=== PATIENT | female | born 2000 | race Caucasian/White ===

== ENCOUNTER 2020-08-08 21:40 | Emergency (ER) | payer MEDICAID, SELFPAY ==
[2020-08-08 21:46] VITALS: BP 136/83; PULSE 88; RESP 16; TEMP 36.3; O2SAT 96
[2020-08-08 21:51] VITALS: RESP 18
--- NOTE | 2020-08-08 22:00 | RT.EKG_ITS ---
APPROVED REPORT Exam: Resting ECG Reason for Exam: chest pain Patient Location: E HR:66 bpm ECG Measurements Heart Rate 66 AXIS SC 168 P 40 QRSd 112 QRS 62 QT 396 T 29 QTc 416 Conclusion Sinus rhythm...normal P axis, V-rate 60- 99 Normal Electrocardiogram
[2020-08-08 22:27] LABS: Abs Immature Grans 0.02 10^3/uL (0.0-0.06); Absolute Lymphocyte Count 3.43 10^3/uL (1.2-3.4); Absolute Monocyte Count 0.74 10^3/uL (0.1-0.8); Basophils % 0.5; Eosinophils % 1.5; HCT 41.9 % (36.0-46.0); HGB 14.3 g/dL (11.2-15.7); Immature Grans % 0.2; Lymphocytes % 31.1; MCH 28.5 pg (27.0-33.0); MCHC 34.1 % (32.0-36.0); MCV 83.5 fL (80-95); MPV 9.2 fL (8.0-11.0); Monocytes % 6.7; Nucleated RBC 0 %; Platelet Count 390 10^3/uL (130-400); RBC 5.02 10^6/uL (3.93-5.22); RDW 11.6 % (11.7-14.6); RDW-SD 35.3 fL; WBC 11.02 10^3/uL (4.4-10.8)
[2020-08-08 22:29] LABS: Absolute Basophil Count 0.06 10^3/uL (0.0-0.2); Absolute Eosinophil Count 0.17 10^3/uL (0.0-0.7); Absolute Neutrophil Count 6.61 10^3/uL (1.2-6.7)
[2020-08-08 22:41] LABS: PTT Activated 23.6 sec (21.0-27.5); Prothrombin Time 10.5 sec (9.3-11.0)
[2020-08-08 22:42] LABS: ALT 19 U/L (14-59); AST 12 U/L (15-37); Albumin 3.9 g/dL (3.4-5.0); Alkaline Phosphatase 93 U/L (46-116); Anion Gap 10.3 mmol/L (3-11); BUN 8 mg/dL (7-18); Bilirubin, Total 0.4 mg/dL (0.2-1.0); CO2 26.7 mmol/L (21.0-32.0); CREATININE 0.9 mg/dL (0.55-1.02); Chloride 104 mmol/L (98-107); Glucose 86 mg/dL (74-106); Magnesium 1.8 mg/dL (1.8-2.4); Potassium 3.3 mmol/L (3.5-5.1); Sodium 141 mmol/L (136-145); Total Protein 7.7 g/dL (6.4-8.2)
[2020-08-08 22:43] LABS: Troponin I < 0.05 ng/mL (<0.06)
--- NOTE | 2020-08-08 22:49 | DI.RAD_ITS ---
Exam(s) XR CHEST 2V PA LATERAL EXAM: XR CHEST 2V PA LATERAL CLINICAL HISTORY: sob, cough, chest pain TECHNIQUE: 2D digital imaging was performed. COMPARISON: No exams were available for comparison FINDINGS: The heart is not enlarged. The lungs are clear and well expanded. No pleural effusion seen. Mediastin al contours appear intact. IMPRESSION: Normal chest. RADIATION DOSE DELIVERED: Total DLP
[2020-08-08 22:56] LABS: D-Dimer 591 ng/mlFEU (<500)
--- NOTE | 2020-08-08 22:56 | ED.GENADUL_ITS ---
Discharge Plan Disposition Patient Disposition: AGAINST MEDICAL ADVICE Condition: Stable Discharge Details Clinical Impression: Right-sided chest pain Primary Care Provider: Sandra,Local ED Provider: Selvin Benitos and New Rx's Prescriptions: Continued gabapentin 100 mg Tablet 100 mg PO TID RF: 0 Discharge Instructions Instructions: Chest Pain (ED) Additional Instructions: Everything looks fine tonight except your D-dimer which as we discussed is a screening tool for blood clots. You have elected to not have CT chest done to evaluate for blood clots. You understand the risk of cardiac arrest and associated with potentially missing blood clot. Return to ED if you change your mind or if you have worsening pain, shortness of breath. Follow-up with your primary care doctor back home this week. Referrals: Primary Care Provider [Outside] Discharge Data Discharge Date/Time-TO BE ENTERED AT DEPARTURE: 08/08/20 23:45 Medical Decision Making Patient presenting with right lateral chest pain in association with congestion and cough which is now pleuritic and constant. Denies fever or shortness of breath. No risk factors for PE. EKG from triage is normal. Laboratory studies had been obtained and chest x-ray ordered from triage as well. All of these are unremarkable other than a positive D-dimer. This was discussed at length with the patient. Initially agreed to CTA chest. Subsequently decided she did not want the test performed and wanted to sign out AMA. She did receive Toradol for her pain. She understands the risk of missing pulmonary embolus. We did discuss cardiac arrest and as possibilities. She has full capacity and as such is signing out AMA understanding risk of missed diagnosis of PE. Differential Diagnosis Differential Diagnosis: Chest wall pain, pneumothorax, pneumonia, pleurisy, PE. Lab Data Lab results reviewed: Yes I reviewed the patient's lab results. ECG Data Attestation: I personally reviewed and interpreted this ECG (s) as follows: Prior ECG tracings: not available for review Interpretation: see ekg HPI General Mode of arrival: ambulatory . Date/Time Provider Initiated Documentation: 08/08/20 22:09 . Limitations to Documentation: no limitations . Information obtained by: patient and RN notes reviewed . HPI Narrative: Patient presents to ED with complaint of right lateral chest pain. Patient reports slip and fall in the past with fractured ribs. Subsequently, reports having pain there all the time. In the last week has had significant increase in her pain especially with breathing. She also reports developing nasal congestion an d slight cough in the same time frame. She denies fever or shortness of breath. She stopped smoking a month ago. She is not on estrogen control. She denies leg pain or leg swelling. She denies any GI symptoms. She denies any urinary symptoms. Pain does not radiate anywhere. At this point for the last 48 hours pain has been constant and worse with breathing. She did take acetaminophen and ibuprofen with some relief. Related Data Home Medications Medication Instructions Recorded Confirmed gabapentin 100 mg PO TID 08/08/20 08/08/20 Allergies Allergy/AdvReac Type Severity Reaction Status Date / Time Penicillins Allergy Unknown Verified 08/08/20 22:39 General Stated Complaint: SOB EDVIN: 2 Review of Systems Narrative: As documented in HPI otherwise negative as below. Const: no fever, chills, weakness Resp: no SOB CV: no diaphoresis, edema, syncope GI: no abdominal pain, nausea, vomiting, diarrhea Neuro: no headache, numbness, focal weakness, confusion PFSH Medical History No significant past medical history Social History Smoking/Tobacco Use Status: Former Tobacco Use Smoking risk assessment performed?: Yes Alcohol Intake: never Substance use type: does not use Do you feel safe at home: Yes Exam Narrative Exam Narrative: Const: WDWN female in NAD. HEENT: NC/AT. Normal facial exam. Normal TMs. Normal OP. Eyes: Normal conjunctiva and sclera. Neck: Supple. Trachea midline. Lungs: Normal respiratory effort. Lungs are clear. Cor: RRR without murmur/gallop. Good radial pulses. GI: Soft and ND. Neuro: A+O x 3. Normal speech, mentation, gait. Cranial nerves II - XII grossly intact. No gross motor or sensory deficit. Ext: No C/C/E. No calf tenderness. Skin: Warm and dry without rash. Course Vital Signs Vital signs: Vital Signs Temperature 97.3 F L 08/08/20 21:46 Pulse 88 08/08/20 21:46 Respiratory Rate 16 08/08/20 21:46 Blood Pressure 136/83 08/08/20 21:46 Pulse Oximetry 96 08/08/20 21:46 Temperature 97.3 F L 08/08/20 21:46 Temperature Source Skin 08/08/20 21:46 Pulse 88 08/08/20 21:46 Respiratory Rate 18 08/08/20 21:51 Respiratory Effort Non-Labored 08/08/20 21:51 Respiratory Depth Normal 08/08/20 21:51 Respiratory Pattern Normal 08/08/20 21:51 Blood Pressure 136/83 08/08/20 21:46 Blood Pressure Position Sitting 08/08/20 21:46 Pulse Oximetry 96 08/08/20 21:46 Oxygen Delivery Method Room Air 08/08/20 21:46 Oxygen Flow Rate 0 08/08/20 21:46 Pain Level 8 08/08/20 21:51 Lab/Test Results Lab/Test Results: Laboratory Tests Range/Units 08/08/20 08/08/20 08/08/20 21:50 21:50 21:50 WBC (4.4-10.8) 10^3/uL 11.02 H RBC (3.93-5.22) 10^6/uL 5.02 Hgb (11.2-15.7) g/dL 14.3 Hct (36.0-46.0) % 41.9 MCV (80-95) fL 83.5 MCH (27.0-33.0) pg 28.5 MCHC (32.0-36.0) % 34.1 RDW (11.7-14.6) % 11.6 L Plt Count (130-400) 10^3/uL 390 MPV (8.0-11.0) fL 9.2 Immature Gran % 0.2 Neutrophils % 60.0 Lymphocytes % 31.1 Monocytes % 6.7 Eosinophils % 1.5 Basophils % 0.5 Nucleated RBC % % 0 Absolute Neutrophils (1.2-6.7) 10^3/uL 6.61 Absolute Lymphocytes (1.2-3.4) 10^3/uL 3.43 H Absolute Monocytes (0.1-0.8) 10^3/uL 0.74 Absolute Eosinophils (0.0-0.7) 10^3/uL 0.17 Absolute Basophils (0.0-0.2) 10^3/uL 0.06 PT (9.3-11.0) sec 10.5 INR (0.9-1.1) 1.0 APTT (21.0-27.5) sec 23.6 Sodium (136-145) mmol/L 141 Potassium (3.5-5.1) mmol/L 3.3 L Chloride (98-107) mmol/L 104 Carbon Dioxide (21.0-32.0) mmol/L 26.7 Anion Gap (3-11) mmol/L 10.3 BUN (7-18) mg/dL 8 Creatinine (0.55-1.02) mg/dL 0.9 Estimated GFR/1.73 m2 (mL/min/1.73m2) >= 60.00 Glucose (74-106) mg/dL 86 Calcium (8.5-10.1) mg/dL 9.0 Magnesium (1.8-2.4) mg/dL 1.8 Total Bilirubin (0.2-1.0) mg/dL 0.4 AST (15-37) U/L 12 L ALT (14-59) U/L 19 Alkaline Phosphatase (46-116) U/L 93 Troponin I (<0.06) ng/mL < 0.05 Total Protein (6.4-8.2) g/dL 7.7 Albumin (3.4-5.0) g/dL 3.9 POC- Test(urine) Negative
[2020-08-08] MEDS: Ketorolac 30 MG/ML VIAL IVP (23:15)
--- NOTE | 2020-08-08 23:24 | DI.VRAD_ITS ---
PROCEDURE INFORMATION: Exam: XR Chest Exam date and time: 08/08/2020 10:18 PM Age: 19 years old Clinical indication: Pain; Cough and shortness of breath TECHNIQUE: Imaging protocol: XR of the chest. Views: 2 views. COMPARISON: No relevant prior studies available. FINDINGS: Lungs: Clear lungs. Pleural spaces: No pneumothorax. No sizable pleural effusion. Heart/Mediastinum: No cardiomegaly. Bones/joints: Unremarkable. IMPRESSION: Clear lungs. Dictated and Authenticated by: Arturo Herrera MD. Ordering:DOMI Fisher MD
[2020-08-08 23:41] VITALS: BP 135/63; PULSE 64; RESP 16; O2SAT 99
== END 2020-08-08 23:45 | disposition left against medical advice (07) ==
PROVIDERS: Physician Assistant; Emergency Provider Emergency Medicine
DX: R07.9 Chest pain, unspecified (principal); R79.89 Other specified abnormal findings of blood chemistry; Z53.29 Procedure and treatment not carried out because of patient's decision for other reasons
CPT/HCPCS: 80053; 81025; 93005; 96374; 99284; 71046; 83735; 84484; 85025; 85379; 85610; 85730; 93010; 99283; J1885

== ENCOUNTER 2020-08-19 17:29 | Emergency (ER) | payer MEDICAID, SELFPAY ==
[2020-08-19 17:36] VITALS: BP 125/71; PULSE 75; RESP 20; TEMP 37.3; O2SAT 97
--- NOTE | 2020-08-19 18:00 | RT.EKG_ITS ---
APPROVED REPORT Exam: Resting ECG Reason for Exam: chest pain Patient Location: E HR:62 bpm ECG Measurements Heart Rate 62 AXIS WA 184 P 38 QRSd 101 QRS 62 QT 384 T 31 QTc 390 Conclusion Sinus rhythm...normal P axis, V-rate 60- 99 I have reviewed and interpreted ECG and agree with software generated interpretation.
--- NOTE | 2020-08-19 18:00 | DI.CT_ITS ---
Exam(s) CT CHEST PE CTA EXAM: CT CHEST PE CTA CLINICAL HISTORY: chest pain, elevated ddimer. TECHNIQUE: Imaging Protocol: Axial CT angiography was performed with multi-slice acquisition and mu lti-planar and/or 3D reconstructions. CONTRAST MATERIAL: Intravenous: Omnipaque 350 Contrast volume:structured data in ml COMPARISON: No exams were available for comparison FINDINGS: CT angiography of the chest was performed with intravenous infusion of 100 cc of Omnipaque 350. Repe at scan was performed, also with 100 cc of Omnipaque 350, due to poor opacification arteries on initi al scan. The lungs are predominantly clear except for a 5 millimeter mean diameter right upper subpleural nodu le, if the patient has no known malignancy follow-up should be based on clinical information period. No pleural effusion. Tracheobronchial tree appears intact. No evidence of pulmonary embolic disease. Thoracic aorta is of normal diameter, no thoracic aortic an eurysm or dissection, major branch vessels appear intact. No mediastinal or hilar adenopathy. Images obtained through the upper abdomen show unremarkable appearance of the visualized portions of the liver and spleen IMPRESSION: Negative CT angiogram of the chest. No evidence of pulmonary embolic disease. Incidental 5 millimeter mean diameter right upper lobe subpleural pulmonary nodule, likely benign, fo llow-up per clinical picture. RADIATION DOSE DELIVERED: 966.73mGy.cm Total DLP 966.73mGy.cm Total DLP DATA REPOSITORY: All CT scans at this facility are submitted to the National Radiology Data Registry (NRDR) Dose Index Registry (DIR) with the [employer] (ACR). RADIATION OPTIMIZATION: All CT scans at this facility use at least one of these dose optimization te chniques: automated exposure control; mA and/or kV adjustment per patient size (includes targeted exa ms where dose is matched to clinical indication); or iterative reconstruction.
[2020-08-19 18:18] LABS: Lactate 1.6 mmol/L (0.6-1.4)
[2020-08-19 18:23] LABS: Abs Immature Grans 0.04 10^3/uL (0.0-0.06); Absolute Basophil Count 0.06 10^3/uL (0.0-0.2); Absolute Eosinophil Count 0.25 10^3/uL (0.0-0.7); Absolute Lymphocyte Count 3.01 10^3/uL (1.2-3.4); Absolute Monocyte Count 0.87 10^3/uL (0.1-0.8); Basophils % 0.5; Eosinophils % 2.1; HCT 43.4 % (36.0-46.0); HGB 15.2 g/dL (11.2-15.7); Immature Grans % 0.3; Lymphocytes % 25.7; MCH 29.1 pg (27.0-33.0); MPV 9.5 fL (8.0-11.0); Monocytes % 7.4; Nucleated RBC 0 %; Platelet Count 353 10^3/uL (130-400); RBC 5.23 10^6/uL (3.93-5.22); RDW 11.8 % (11.7-14.6); RDW-SD 35.5 fL; WBC 11.73 10^3/uL (4.4-10.8)
[2020-08-19] MEDS: Ketorolac 15 MG/ML VIAL IVP (18:25)
[2020-08-19 18:27] LABS: Absolute Neutrophil Count 7.51 10^3/uL (1.2-6.7)
[2020-08-19] MEDS: Normal Saline 1,000 ML 1000 ML IV (18:44)
[2020-08-19 18:45] LABS: ALT 19 U/L (14-59); AST 12 U/L (15-37); Albumin 3.8 g/dL (3.4-5.0); Alkaline Phosphatase 108 U/L (46-116); Anion Gap 9.7 mmol/L (3-11); BUN 11 mg/dL (7-18); Bilirubin, Total 0.2 mg/dL (0.2-1.0); CO2 26.3 mmol/L (21.0-32.0); Calcium 8.6 mg/dL (8.5-10.1); Chloride 106 mmol/L (98-107); Glucose 107 mg/dL (74-106); Potassium 4.1 mmol/L (3.5-5.1); Sodium 142 mmol/L (136-145); Total Protein 7.4 g/dL (6.4-8.2)
[2020-08-19 18:46] VITALS: BP 109/72; PULSE 64; RESP 18; TEMP 36.4; O2SAT 98
[2020-08-19 18:51] LABS: Bilirubin Negative (Negative); Blood Negative (Negative); Clarity Clear (Clear); Glucose Negative (Negative); Ketones Negative (Negative); Leukocyte Esterase Negative (Negative); Nitrite Negative (Negative); Specific Gravity 1.025 (1.005-1.025); Urobilinogen 0.2 EU/dL (Up TO 0.2)
[2020-08-19 18:59] LABS: Troponin I < 0.05 ng/mL (<0.06)
--- NOTE | 2020-08-19 19:06 | ED.GENADUL_ITS ---
Discharge Plan Disposition Patient Disposition: HOME Condition: Stable Discharge Details Clinical Impression: Right-sided chest pain, Incidental pulmonary nodule, Bronchitis Primary Care Provider: Sandra,Local ED Provider: Deirdre Miner Home Meds and New Rx's Prescriptions: New prednisone 20 mg tablet 40 mg PO DAILY Qty: 4 RF: 0 doxycycline hyclate 100 mg tablet 100 mg PO BID Qty: 14 RF: 0 No Action gabapentin 100 mg Tablet 100 mg PO TID RF: 0 Discharge Instructions Instructions: Chest Pain (ED), Acute Bronchitis (ED) Additional Instructions: Take antibiotic for the next 7 days Take prednisone starting tomorrow, you received doses of the prednisone and doxycycline today Yogurt daily while on antibiotic Follow-up with your doctor regarding the pulmonary nodule that is an incidental finding on your CT scan, this will need outpatient follow-up, it is very important that you do so but it is not likely causing your symptoms today Should you have worsening pain, shortness of breath, uncontrolled fever, please return to the emergency room. Stand Alone Forms: PENDING COVID-19 TESTING Medical Decision Making Patient is ambulatory with steady gait, she has not hypoxic, she is otherwise stable in appearance She has minimally elevated lactate She had a negative Covid test 2 weeks ago. She had a positive D-dimer and last against recommendation several days ago, I did order CTA as she is agreeable to this test time She is made aware regarding radiation and she accepts this risk She was given a inhaler and instructed on how to use it Return precautions discussed and patient understanding Given the patient has had fever and been ill for 3 weeks, I did prescribe the patient 7 days of doxycycline Patient was made aware regarding pulmonary nodule on CT scan, the CTA results reviewed for radiology interpretation available Return precautions discussed understanding Patient will follow up with her PCP regarding pulmonary nodule HPI General Mode of arrival: ambulatory . Date/Time Provider Initiated Documentation: 08/19/20 17:51 . Limitations to Documentation: no limitations . Information obtained by: patient . HPI Narrative: This 19-year-old female presents with chest pain persistent for the past 3 weeks. She states she was evaluated in the emergency room at the onset of her pain and CTA was recommended but she declined as she was nervous about the radiation. She states secondary to the persistent nature of her pain and fever yesterday T-max 101.4 she presents for imaging at this time. She denies any prior history of pulmonary embolism or DVT. She denies any fever today. She denies any chills. Denies any sick contact. Had a negative Covid test 2 weeks ago reportedly. Denies cough. Denies any chance of or exogenous hormone therapy. Denies any exacerbating or relieving factors. States she feels short of breath secondary to pain. Related Data Home Medications Medication Instructions Recorded Confirmed gabapentin 100 mg PO TID 08/08/20 08/19/20 doxycycline hyclate 100 mg PO BID #14 tab 08/19/20 prednisone 40 mg PO DAILY #4 tab 08/19/20 Previous Rx's Medication Instructions Recorded doxycycline hyclate 100 mg PO BID #14 tab 08/19/20 prednisone 40 mg PO DAILY #4 tab 08/19/20 Allergies Allergy/AdvReac Type Severity Reaction Status Date / Time Penicillins Allergy Unknown Verified 08/19/20 17:39 General Stated Complaint: SOB EDVIN: 3 Review of Systems Narrative: Review of systems negative x7 aside from where indicated in HPI [facility] [place] Medical History No significant past medical history Social History Smoking/Tobacco Use Status: Former Tobacco Use Smoking risk assessment performed?: Yes Alcohol Intake: never Drug use: Never Substance use type: does not use Do you feel safe at home: Yes Do you feel safe in your relationship?: Yes Exam Const General: cooperative and comfortable HENMT Other: Moist mucous membrane Neck Neck: no JVD Chest Other: Reproducible chest wall tenderness, no rashes, crepitus, or lesion Resp Other: Minimal inspiratory wheezes, no respiratory distress Cardio Heart Sounds: no murmurs Skin General skin exam: no rashes or lesions noted Neuro General: patient alert and patient oriented x3 Extrem Other: No calf swelling or tenderness Course Vital Signs Vital signs: Vital Signs Temperature 37.3 C 08/19/20 17:36 Pulse 75 08/19/20 17:36 Respiratory Rate 20 08/19/20 17:36 Blood Pressure 125/71 08/19/20 17:36 Pulse Oximetry 97 08/19/20 17:36 Temperature 36.4 C L 08/19/20 18:46 Temperature Source Temporal Artery Scan 08/19/20 18:46 Pulse 64 08/19/20 18:46 Respiratory Rate 18 08/19/20 18:46 Respiratory Effort Non-Labored 08/19/20 18:12 Respiratory Depth Normal 08/19/20 18:12 Respiratory Pattern Normal 08/19/20 18:12 Blood Pressure 109/72 08/19/20 18:46 Blood Pressure Position Sitting 08/19/20 17:36 Pulse Oximetry 98 08/19/20 18:46 Oxygen Delivery Method Room Air 08/19/20 18:46 Oxygen Flow Rate 0 08/19/20 18:46 Pain Level 5 08/19/20 18:46 Lab/Test Results Lab/Test Results: 08/19/20 18:31 Blood Blood Culture - Pending 08/19/20 18:31 Blood Blood Culture - Pending Laboratory Tests Range/Units 08/19/20 08/19/20 08/19/20 17:45 17:45 17:45 WBC (4.4-10.8) 10^3/uL 11.73 H RBC (3.93-5.22) 10^6/uL 5.23 H Hgb (11.2-15.7) g/dL 15.2 Hct (36.0-46.0) % 43.4 MCV (80-95) fL 83.0 MCH (27.0-33.0) pg 29.1 MCHC (32.0-36.0) % 35.0 RDW (11.7-14.6) % 11.8 Plt Count (130-400) 10^3/uL 353 MPV (8.0-11.0) fL 9.5 Immature Gran % 0.3 Neutrophils % 64.0 Lymphocytes % 25.7 Monocytes % 7.4 Eosinophils % 2.1 Basophils % 0.5 Nucleated RBC % % 0 Absolute Neutrophils (1.2-6.7) 10^3/uL 7.51 H Absolute Lymphocytes (1.2-3.4) 10^3/uL 3.01 Absolute Monocytes (0.1-0.8) 10^3/uL 0.87 H Absolute Eosinophils (0.0-0.7) 10^3/uL 0.25 Absolute Basophils (0.0-0.2) 10^3/uL 0.06 VBG Lactate (0.6-1.4) mmol/L 1.6 H Sodium (136-145) mmol/L 142 Potassium (3.5-5.1) mmol/L 4.1 Chloride (98-107) mmol/L 106 Carbon Dioxide (21.0-32.0) mmol/L 26.3 Anion Gap (3-11) mmol/L 9.7 BUN (7-18) mg/dL 11 Creatinine (0.55-1.02) mg/dL 1.0 Estimated GFR/1.73 m2 (mL/min/1.73m2) >= 60.00 Glucose (74-106) mg/dL 107 H Calcium (8.5-10.1) mg/dL 8.6 Total Bilirubin (0.2-1.0) mg/dL 0.2 AST (15-37) U/L 12 L ALT (14-59) U/L 19 Alkaline Phosphatase (46-116) U/L 108 Troponin I (<0.06) ng/mL < 0.05 Total Protein (6.4-8.2) g/dL 7.4 Albumin (3.4-5.0) g/dL 3.8 Urine Color (Yellow) Urine Clarity (Clear) Urine pH (5-8) Ur Specific [place] (1.005-1.025) Urine Protein (Negative) mg/dL Urine Ketones (Negative) mg/dL Urine Blood (Negative) Urine Nitrite (Negative) Urine Bilirubin (Negative) Urine Urobilinogen (Up TO 0.2) EU/dL Ur Leukocyte Esterase (Negative) Urine Glucose (Negative) mg/dL Range/Units 08/19/20 18:15 WBC (4.4-10.8) 10^3/uL RBC (3.93-5.22) 10^6/uL Hgb (11.2-15.7) g/dL Hct (36.0-46.0) % MCV (80-95) fL MCH (27.0-33.0) pg MCHC (32.0-36.0) % RDW (11.7-14.6) % Plt Count (130-400) 10^3/uL MPV (8.0-11.0) fL Immature Gran % Neutrophils % Lymphocytes % Monocytes % Eosinophils % Basophils % Nucleated RBC % % Absolute Neutrophils (1.2-6.7) 10^3/uL Absolute Lymphocytes (1.2-3.4) 10^3/uL Absolute Monocytes (0.1-0.8) 10^3/uL Absolute Eosinophils (0.0-0.7) 10^3/uL Absolute Basophils (0.0-0.2) 10^3/uL VBG Lactate (0.6-1.4) mmol/L Sodium (136-145) mmol/L Potassium (3.5-5.1) mmol/L Chloride (98-107) mmol/L Carbon Dioxide (21.0-32.0) mmol/L Anion Gap (3-11) mmol/L BUN (7-18) mg/dL Creatinine (0.55-1.02) mg/dL Estimated GFR/1.73 m2 (mL/min/1.73m2) Glucose (74-106) mg/dL Calcium (8.5-10.1) mg/dL Total Bilirubin (0.2-1.0) mg/dL AST (15-37) U/L ALT (14-59) U/L Alkaline Phosphatase (46-116) U/L Troponin I (<0.06) ng/mL Total Protein (6.4-8.2) g/dL Albumin (3.4-5.0) g/dL Urine Color (Yellow) Yellow Urine Clarity (Clear) Clear Urine pH (5-8) 7.0 Ur Specific [place] (1.005-1.025) 1.025 Urine Protein (Negative) mg/dL Negative Urine Ketones (Negative) mg/dL Negative Urine Blood (Negative) Negative Urine Nitrite (Negative) Negative Urine Bilirubin (Negative) Negative Urine Urobilinogen (Up TO 0.2) EU/dL 0.2 Ur Leukocyte Esterase (Negative) Negative Urine Glucose (Negative) mg/dL Negative POC- Test(urine) Negative
[2020-08-19] MEDS: Omnipaque 350 MG/ML 100 ML BTL IJ ×2 (19:17→19:45)
[2020-08-19] MEDS: Normal Saline Flush 10 ML SYR IVP (19:18)
[2020-08-19] MEDS: Normal Saline - Diluent 50 ML VIAL IV (19:18)
--- NOTE | 2020-08-19 20:17 | DI.VRAD_ITS ---
PROCEDURE INFORMATION: Exam: CTA Chest With Contrast Exam date and time: 08/19/2020 6:13 PM Age: 19 years old Clinical indication: Pain; Shortness of breath; On breathing; Patient HX: Elevated d-dimer. TECHNIQUE: Imaging protocol: Computed tomographic angiography of the chest with contrast. 3D rendering (Not supervised by radiologist): MIP and/or 3D reconstructed images were created by the technologist. Radiation optimization: All CT scans at this facility use at least one of these dose optimization techniques: automated exposure control; mA and/or kV adjustment per patient size (includes targeted exams where dose is matched to clinical indication); or iterative reconstruction. Contrast material: OMNIPAQUE 350; Contrast volume: 200 ml; Contrast route: INTRAVENOUS (IV); COMPARISON: CR XR CHEST 2V PA LATERAL 08/08/2020 10:46 PM FINDINGS: Pulmonary arteries: No filling defects within the pulmonary arteries are identified to suggest pulmonary embolism. Aorta: Unremarkable. No aortic aneurysm. No aortic dissection. Lungs: There is mild central peribronchial thickening. The central airways are patent. There is no bronchiectasis or bronchiolectasis. There is a 6 x 4 mm subpleural nodular opacity within the posterior aspect of the right upper lobe on image 134, series 10, likely benign. Pleural spaces: There is no evidence of pneumothorax. No pleural effusions are identified. Heart: There is no bowing of the interventricular septum or disproportionate enlargement of the right heart. There is no reflux of contrast into the IVC or hepatic veins. Heart size is near the upper limits normal. There is no pericardial effusion. Lymph nodes: Unremarkable. No enlarged lymph nodes. Bones/joints: Unremarkable. No acute fracture. Soft tissues: Unremarkable. IMPRESSION: 1. No pulmonary embolism identified. 2. 6 x 4 mm subpleural right upper lobe nodule, likely benign. If the patient does not have known cancer, follow up should be based on clinical information because of the low risk of cancer in this age group. (Reference: Phil) 3. Mild central peribronchial thickening could reflect history of bronchitis. Recommend clinical correlation. REFERENCES: Phil Will, et al. Guidelines for Management of Incidental Pulmonary Nodules Detected on CT Images: From the Fleischner Society 2017. Radiology. 2017;284(1):228-243. Dictated and Authenticated by: Wiliam Fenton MD. Ordering:SERA Gilmore MD
[2020-08-19] MEDS: Doxycycline Hyclate 100 MG CAP PO (20:45)
[2020-08-19] MEDS: predniSONE 20 MG TAB 40 MG PO (20:45)
[2020-08-19 20:46] VITALS: BP 121/92; PULSE 62; RESP 19; TEMP 36.3; O2SAT 99
[2020-08-21 14:59] LABS: COVID-19 RT-PCR UVMMC Result Negative (Negative)
== END 2020-08-19 20:50 | disposition home or self-care (01) ==
PROVIDERS: Emergency Provider Physician Assistant
DX: R07.89 Other chest pain (principal); R91.1 Solitary pulmonary nodule; J40 Bronchitis, not specified as acute or chronic
CPT/HCPCS: 36410; 36415; 71275; 80053; 81025; 87040; 93005; 96361; 96374; 99285; U0003; 81003; 83605; 84484; 85025; 93010; 99283; J1885; J3490; J7512

== ENCOUNTER 2020-08-31 21:11 | Emergency (ER) | payer MEDICAID, SELFPAY ==
--- NOTE | 2020-08-31 21:15 | DI.CT_ITS ---
Exam(s) CT ABDOMEN PELVIS W EXAM: CT ABDOMEN PELVIS W CLINICAL HISTORY: LLQ and inguinal abdominal pain, r/o hernia, cyst TECHNIQUE: Imaging Protocol: Axial computed tomography images with coronal and sagittal reformatted images were created and reviewed CONTRAST MATERIAL: Intravenous: Omnipaque 350 Contrast volume:100 mL Oral: No COMPARISON: CT CT CHEST PE CTA from 08/19/2020 FINDINGS: The examination is limited due to patient motion artifact. ABDOMEN: Lung Bases: Normal where visualized. Liver: Normal density. No measurable mass. Portal, Superior Mesenteric, and Splenic Veins: Unremarkable. Gallbladder and Biliary Tract: No radiodense calculus or dilation. Pancreas: Normal density, no abnormal calcifications or inflammatory process. Spleen: Normal. Adrenals: No masses seen. Kidneys: Normal size, contour and axis. 3 mm nonobstructing calculus in the left mid pole. No masses seen. Abdominal Aorta: Abdominal portion non-dilated. Bowel: No evidence of bowel obstruction. Mild dilatation of proximal jejunal loops with question of m ild bowel wall thickening. No evidence of appendicitis. Peritoneal Cavity: No ascites, collection or mesenteric inflammatory response. No free air. Lymph Nodes: Within normal limits. Bones: Within normal limits for the patient's age. Soft Tissues: Unremarkable. PELVIS: Bladder: Incompletely distended. No gross abnormality. Reproductive Organs: Unremarkable as visualized. Lymph Nodes: Within normal limits. Bones: Within normal limits for the patient's age. IMPRESSION: Mild bowel wall thickening and dilatation of loops of proximal jejunum. A mild infectious or inflamma tory enteritis should be considered. RADIATION DOSE DELIVERED: 1,224.96mGy.cm Total DLP DATA REPOSITORY: All CT scans at this facility are submitted to the National Radiology Data Registry (NRDR) Dose Index Registry (DIR) with the [employer] (ACR). RADIATION OPTIMIZATION: All CT scans at this facility use at least one of these dose optimization te chniques: automated exposure control; mA and/or kV adjustment per patient size (includes targeted exa ms where dose is matched to clinical indication); or iterative reconstruction.
[2020-08-31 21:18] VITALS: BP 141/66; PULSE 79; RESP 18; TEMP 35.9; O2SAT 97
--- NOTE | 2020-08-31 21:25 | ED.GENADUL_ITS ---
Discharge Plan Disposition Patient Disposition: HOME Condition: Good Discharge Details Clinical Impression: Enteritis, Acute lymphadenitis Primary Care Provider: Sandra,Local ED Provider: Jay Saavedra Home Meds and New Rx's Prescriptions: New dicyclomine 10 mg capsule 10 mg PO TID Qty: 14 RF: 0 Continued gabapentin 100 mg Tablet 300 mg PO TID RF: 0 prednisone 20 mg tablet 40 mg PO DAILY Qty: 4 RF: 0 doxycycline hyclate 100 mg tablet 100 mg PO BID Qty: 14 RF: 0 Discharge Instructions Instructions: Enteritis (ED) Additional Instructions: At this time the CAT scan does not show any evidence of incarcerated inguinal hernia, appendicitis, or other surgical emergency. You do have mild enteritis which is inflammation of your bowels, as well as evidence of mild lymph nodes which is certainly what is likely causing the pain in your inguinal region. Please take Tylenol and Motrin to help decrease the inflammation and pain. Please drink plenty of fluids. If you notice any worsening of your symptoms, or any new symptoms such as vomiting, diarrhea, fever, chills, shortness of breath, chest pain, numbness, weakness, or fainting , please return immediately to the emergency department for reevaluation. Please follow up with your primary care provider as soon as possible for reassessment and reevaluation. As always, it was a pleasure participating in your medical care today. Medical Decision Making This is a 19-year-old female with no significant past medical history except for epilepsy for which she takes gabapentin, and a previous inguinal hernia surgical repair but this was when she was a child and she does not recall where or what side of the body was done on. She presents today for evaluation of left lower quadrant abdominal pain. The patient states that for the last week she has had gradually worsening left lower quadrant abdominal pain. She describes it as feeling like there is a mass in the left groin. It is worse when she bends forward, strains to have a bowel movement, or strains to urinate. She denies any recent heavy lifting or trauma. Of note she was here just over a week ago for bronchitis, she had a negative CT scan of the chest except she did have a small pulmonary nodule. She was prescribed doxycycline and prednisone but has not filled these yet. She denies any vomiting, burning when she urinates, or diarrhea. No hematochezia melena or acholic stool. She denies any vaginal discharge. Her menstrual period was over 2 ago. No history of ovarian cysts. No other complaints at this time. No other modifying factors. Physical exam demonstrates notable tenderness of the left lower quadrant of the abdomen. Specially over the inguinal canal. Difficult to appreciate any clear evidence of enlargement of the inguinal canal. Concern for incarcerated inguinal hernia. Diverticulitis also on the differential. The patient's pain is constant, and so the symptoms do not appear is consistent with ovarian torsion. I did discuss the risk and benefits of CT imaging, the patient is in agreement with getting a CAT scan at this time. We will treat the patient's pain, evaluate for urinary infection, monitor closely and reassess. 11:31 PM Patient's laboratory work-up has returned, minimal white count at 13.5, initial lactate is 2.0, electrolytes stable. Urinalysis negative. Lipase normal. CT scan shows no evidence of hernia, urolithiasis, incarceration, or obstruction. There is evidence of mild mild inguinal lymphadenopathy bilaterally. Repeat exam continues to demonstrate mild tenderness in the left inguinal canal and left lower quadrant, however patient's vital signs remained stable, no associated tachycardia. No hypotension. Patient continues to demonstrate no evidence of an acute surgical abdomen. Discussed admission options with the patient for continued pain management and she made it very clear that she does not want to stay overnight at this time. Patient states that her goals are to h ave her pain improve stating that she gets cranky and is not fair to her new child is she is cranky and upset at home because of the abdominal pain we will redose pain medicines and give Bentyl and reassess. Exam at this time shows no clinical evidence at all of ovarian torsion, appendicitis, or acute surgical abnormality. 12:18 AM On reassessment patient feeling much better, she feels that the pain is well controlled and feels comfortable going home. We will give her prescription for Bentyl for home use Sullivan to go only if needed. Repeat exam demonstrates a well-appearing benign abdomen. I have extensively reviewed the treatment plan and discharge instructions with the patient. I have addressed all patient concerns at this time. The patient was made aware of what symptoms to monitor for that would warrant a return to the emergency department. Discussed the plan with the patient, they demonstrate verbal understanding and agreement with our assessment and plan at this time. The documentation in this chart was dictated using [employer] dictation software. Please excuse any dictation errors. FINDINGS: Liver: Unremarkable. No mass. Gallbladder and bile ducts: No calcified stones. No ductal dilation. Pancreas: Unremarkable. No ductal dilation. Spleen: Unremarkable. No splenomegaly. Adrenal glands: Normal. No mass. Kidneys and ureters: Nonobstructing 3 mm left renal calculus. Stomach and bowel: Mildly dilated proximal jejunal loops, cannot rule out mild enteritis. Appendix: No evidence of appendicitis. Intraperitoneal space: No free air. No significant fluid collection. Vasculature: No abdominal aortic aneurysm. Lymph nodes: Borderline bilateral inguinal lymph nodes measuring up to 11 mm in short axis. Urinary bladder: Unremarkable as visualized. Reproductive: Unremarkable as visualized. Bones/joints: Unremarkable. No acute fracture. Soft tissues: Unremarkable. IMPRESSION: 1. Nonobstructing 3 mm left renal calculus. No calculi elsewhere in the course of the urinary tract. 2. Mild distention of mid abdominal jejunal loops with fluid, cannot rule out mild enteritis. Thank you for allowing us to participate in the care of your patient. Dictated and Authenticated by: Celso Valderrama MD 08/31/2020 11:14 PM Eastern Time ([place] & [place]) HPI General Date/Time Provider Initiated Documentation: 08/31/20 21:12 . HPI Narrative: This is a 19-year-old female with no significant past medical history except for epilepsy for which she takes gabapentin, and a previous inguinal hernia surgical repair but this was when she was a child and she does not recall where or what side of the body was done on. She presents today for evaluation of left lower quadrant abdominal pain. The patient states that for the last week she has had gradually worsening left lower quadrant abdominal pain. She describes it as feeling like there is a mass in the left groin. It is worse when she bends forward, strains to have a bowel movement, or strains to urinate. She denies any recent heavy lifting or trauma. Of note she was here just over a week ago for bronchitis, she had a negative CT scan of the chest except she did have a small pulmonary nodule. She was prescribed doxycycline and prednisone but has not filled these yet. She denies any vomiting, burning when she urinates, or diarrhea. No hematochezia melena or acholic stool. She denies any vaginal discharge. Her menstrual period was over 2 weeks ago. No history of ovarian cysts. Patient did have her second Covid vaccine on August 22. no other complaints at this time. No other modifying factors. Related Data Home Medications Medication Instructions Recorded Confirmed gabapentin 300 mg PO TID 08/08/20 08/31/20 doxycycline hyclate 100 mg PO BID #14 tab 08/19/20 08/31/20 prednisone 40 mg PO DAILY #4 tab 08/19/20 08/31/20 dicyclomine 10 mg PO TID #14 cap 09/01/20 Previous Rx's Medication Instructions Recorded doxycycline hyclate 100 mg PO BID #14 tab 08/19/20 prednisone 40 mg PO DAILY #4 tab 08/19/20 dicyclomine 10 mg PO TID #14 cap 09/01/20 Allergies Allergy/AdvReac Type Severity Reaction Status Date / Time Penicillins Allergy Unknown Verified 08/31/20 21:25 General Stated Complaint: Abd Prob EDVIN: 3 Review of Systems All systems reviewed & are unremarkable except as noted in HPI and below PFSH Medical History Epilepsy Nerve pain right side - uses gabapentin to tx No significant past medical history Social History Smoking/Tobacco Use Status: Former Tobacco Use Smoking risk assessment performed?: Yes Alcohol Intake: current Alcohol Intake frequency: holidays/special occasions only Drug use: Never Substance use type: does not use Do you feel safe at home: Yes Do you feel safe in your relationship?: Yes Exam Narrative Exam Narrative: 1.Const: Well-nourished, Well-developed, appearing stated age 2.Eyes: PERRL, no conjunctival injection, and symmetrical lids. 3.ENT: Atraumatic external nose and ears. Moist MM. Neck: Symmetric, trachea midline, No thyromegaly. 4.CVS: +S1/S2, No murmurs or gallops. Peripheral pulses 2+ and equal in all extremities. Brisk capillary refill in all extremities. 5.RESP: Unlabored respiratory effort. Clear to auscultation bilaterally. No wheezes rales or rhonchi 6.GI: Soft, nondistended, patient demonstrates notable tenderness in the left lower inguinal region in the left lower quadrant. No pain at McBurney's point or the right lower quadrant. No clear evidence of previous scar. No sign ificant left upper quadrant tenderness. Patient's adipose does make it slightly challenging for direct tactile appreciation for any enlarged inguinal canal. 7.MSK: Normocephalic/Atraumatic, Extremities w/o deformity or ttp No cyanosis or clubbing, Normal movement of all extremities 8.Skin: Warm, Dry. No rashes or lesions. 9.Neuro: raw hide trimmer II-XII grossly intact. Sensation grossly intact, no focal neurologic deficits. 10.Psych: (AAO) x3. Appropriate mood and affect Course Vital Signs Vital signs: Vital Signs Temperature 35.9 C L 08/31/20 21:18 Pulse 79 08/31/20 21:18 Respiratory Rate 18 08/31/20 21:18 Blood Pressure 141/66 H 08/31/20 21:18 Pulse Oximetry 97 08/31/20 21:18 Temperature 35.9 C L 08/31/20 21:18 Pulse 79 08/31/20 21:18 Respiratory Rate 18 08/31/20 21:18 Blood Pressure 141/66 H 08/31/20 21:18 Pulse Oximetry 97 08/31/20 21:18 Pain Level 9 08/31/20 21:18 Lab/Test Results Lab/Test Results: 08/31/20 21:23 Blood Blood Culture - Pending 08/31/20 21:23 Blood Blood Culture - Pending
[2020-08-31] MEDS: Normal Saline 1,000 ML 1000 ML IV (21:40)
[2020-08-31] MEDS: ACETAMINOPHEN 1,000 MG/100 ML BTL 400 MG IVPB (21:45)
[2020-08-31 21:54] LABS: Abs Immature Grans 0.04 10^3/uL (0.0-0.06); Absolute Basophil Count 0.05 10^3/uL (0.0-0.2); Absolute Eosinophil Count 0.24 10^3/uL (0.0-0.7); Absolute Monocyte Count 0.81 10^3/uL (0.1-0.8); Basophils % 0.4; Eosinophils % 1.8; HCT 41.4 % (36.0-46.0); HGB 14.3 g/dL (11.2-15.7); Immature Grans % 0.3; Lymphocytes % 25.1; MCH 28.6 pg (27.0-33.0); MCHC 34.5 % (32.0-36.0); MCV 82.8 fL (80-95); MPV 9.1 fL (8.0-11.0); Neutrophils % 66.4; Nucleated RBC 0 %; Platelet Count 391 10^3/uL (130-400); RDW 11.9 % (11.7-14.6); RDW-SD 35.8 fL; WBC 13.55 10^3/uL (4.4-10.8)
[2020-08-31 22:07] LABS: Bilirubin Negative (Negative); Blood Negative (Negative); Clarity Clear (Clear); Glucose Negative (Negative); Ketones Negative (Negative); Leukocyte Esterase Negative (Negative); Nitrite Negative (Negative); Specific Gravity >= 1.030 (1.005-1.025); Urobilinogen 0.2 EU/dL (Up TO 0.2)
[2020-08-31 22:24] LABS: ALT 19 U/L (14-59); AST 12 U/L (15-37); Albumin 3.7 g/dL (3.4-5.0); Alkaline Phosphatase 95 U/L (46-116); BUN 14 mg/dL (7-18); Bilirubin, Total 0.3 mg/dL (0.2-1.0); CREATININE 1.1 mg/dL (0.55-1.02); Calcium 8.7 mg/dL (8.5-10.1); Chloride 104 mmol/L (98-107); Glucose 105 mg/dL (74-106); Lipase 77 U/L (73-393); Potassium 3.7 mmol/L (3.5-5.1); Sodium 143 mmol/L (136-145); Total Protein 7.4 g/dL (6.4-8.2)
[2020-08-31] MEDS: Omnipaque 350 MG/ML 100 ML BTL IJ (22:26)
[2020-08-31] MEDS: Ondansetron 4 MG/2 ML VIAL (22:26)
[2020-08-31] MEDS: Normal Saline - Diluent 50 ML VIAL IV (22:27)
--- NOTE | 2020-08-31 23:14 | DI.VRAD_ITS ---
PROCEDURE INFORMATION: Exam: CT Abdomen And Pelvis With Contrast Exam date and time: 08/31/2020 9:25 PM Age: 19 years old Clinical indication: Localized; Left lower quadrant (llq); Patient HX: Llq and inguinal abdominal pain, R/O hernia, cyst TECHNIQUE: Imaging protocol: Computed tomography of the abdomen and pelvis with contrast. COMPARISON: No relevant prior studies available. FINDINGS: Liver: Unremarkable. No mass. Gallbladder and bile ducts: No calcified stones. No ductal dilation. Pancreas: Unremarkable. No ductal dilation. Spleen: Unremarkable. No splenomegaly. Adrenal glands: Normal. No mass. Kidneys and ureters: Nonobstructing 3 mm left renal calculus. Stomach and bowel: Mildly dilated proximal jejunal loops, cannot rule out mild enteritis. Appendix: No evidence of appendicitis. Intraperitoneal space: No free air. No significant fluid collection. Vasculature: No abdominal aortic aneurysm. Lymph nodes: Borderline bilateral inguinal lymph nodes measuring up to 11 mm in short axis. Urinary bladder: Unremarkable as visualized. Reproductive: Unremarkable as visualized. Bones/joints: Unremarkable. No acute fracture. Soft tissues: Unremarkable. IMPRESSION: 1. Nonobstructing 3 mm left renal calculus. No calculi elsewhere in the course of the urinary tract. 2. Mild distention of mid abdominal jejunal loops with fluid, cannot rule out mild enteritis. Dictated and Authenticated by: Celso Valderrama MD. Ordering:CLIF Thompson MD
[2020-08-31] MEDS: HYDROmorphone 2 MG/ML VIAL 1 MG IVP (23:32)
[2020-08-31 23:33] LABS: Lactate 0.7 mmol/L (0.6-1.4)
[2020-08-31 23:35] VITALS: BP 130/59; PULSE 82; RESP 18; O2SAT 98
[2020-08-31] MEDS: Dicyclomine 20 MG TAB PO (23:37)
[2020-09-01] VITALS: BP 93/65; PULSE 74; RESP 16; O2SAT 97
[2020-09-01 00:32] VITALS: BP 112/59; PULSE 74; RESP 18; O2SAT 97
== END 2020-09-01 00:35 | disposition home or self-care (01) ==
PROVIDERS: Emergency Provider Student in an Organized Health Care Education/Training Program
DX: L04.1 Acute lymphadenitis of trunk (principal); K52.9 Noninfective gastroenteritis and colitis, unspecified
CPT/HCPCS: 36415; 80053; 83690; 87040; 96361; 96365; 96375; 99285; 74177; 81003; 83605; 85025; 99284; J0131; J2405; J3490

== ENCOUNTER 2020-09-04 20:26 | Emergency (ER) | payer MEDICAID, SELFPAY ==
--- NOTE | 2020-09-04 20:34 | ED.GENADUL_ITS ---
Discharge Plan Disposition Patient Disposition: HOME Condition: Improving Discharge Details Clinical Impression: Abdominal pain, vomiting, and diarrhea Primary Care Provider: Sandra,Local ED Provider: Natalia Floyd Home Meds and New Rx's Prescriptions: New ondansetron 4 mg tablet,disintegrating 4 mg PO TID PRN (Reason: nausea and vomiting) Qty: 6 RF: 0 Continued dicyclomine 10 mg capsule 10 mg PO TID Qty: 14 RF: 0 gabapentin 100 mg Tablet 300 mg PO TID RF: 0 prednisone 20 mg tablet 40 mg PO DAILY Qty: 4 RF: 0 doxycycline hyclate 100 mg tablet 100 mg PO BID Qty: 14 RF: 0 Discharge Instructions Instructions: Acute Nausea and Vomiting (ED), Acute Diarrhea (ED), Abdominal Pain (ED) Additional Instructions: Drink plenty of fluids and get plenty of rest. Alternate tylenol and motrin as needed and directed for pain. Take the Zofran as needed and directed for nausea and vomiting. Return the stool sample to the hospital as directed. Follow-up with your primary care doctor in 1 week. Return to the emergency department with any worsening or new concerning symptoms such as fever, persistent vomiting or worsening abdominal pain. Discharge Data Discharge Date/Time-TO BE ENTERED AT DEPARTURE: 09/04/20 23:25 Discharge Physician: Natalia Floyd Medical Decision Making 19-year-old female with a history of chronic back pain on gabapentin, obesity, recently in the emergency department 4 days ago for vomiting, diarrhea and abdominal pain diagnosed with enteritis and acute lymphadenitis sent home on dicyclomine presents with persistent vomiting, abdominal pain and diarrhea. She appears comfortable and nontoxic. She has occasional episodes of pain during my evaluation. Her abdomen is soft but has diffuse tenderness across lower aspect but without rigidity or guarding. Discussed at length with patient that as she had a CT abdomen and pelvis 4 days ago which noted mild bowel wall thickening and dilatation of loops of proximal jejunum. A mild infectious or inflammatory enteritis should be considered. And she had a chest CT on 08/19/2020 for chest pain which was negative for PE, and she has the same persistent symptoms that she had a few days ago, I do not want to expose her to additional radiation with another CT and she is agreeable and would rather hold on repeat imaging at this time. We will place an IV, bolus IV fluids, screening labs, urinalysis. Urine test. We will give a dose of morphine, Toradol, Zofran and reassess. Labs reviewed. White blood cell count 11.29, decreased from 13.55 four days ago. Electrolytes within normal limits. Urinalysis negative. Patient reassessed and she feels much better and is requesting to go home. She was able to tolerate p.o. without any vomiting. She was recently on doxycycline for bronchitis so we will send patient with a stool sample kit to go. Patient states she would rather hold on antibiotics until necessary. She is given Zofran to go. Advised to follow up with the primary care doctor for re-evaluation. Usual and customary return precautions given prior to discharge. Medical Records Medical records reviewed: Yes I reviewed the patient's medical records. Lab Data Lab results reviewed: Yes I reviewed the patient's lab results. Labs: Laboratory Tests Range/Units 09/04/20 09/04/20 09/04/20 21:23 21:23 22:00 WBC (4.4-10.8) 10^3/uL 11.29 H RBC (3.93-5.22) 10^6/uL 4.81 Hgb (11.2-15.7) g/dL 13.8 Hct (36.0-46.0) % 39.9 MCV (80-95) fL 83.0 MCH (27.0-33.0) pg 28.7 MCHC (32.0-36.0) % 34.6 RDW (11.7-14.6) % 12.2 Plt Count (130-400) 10^3/uL 326 MPV (8.0-11.0) fL 9.3 Immature Gran % 0.3 Neutrophils % 57.6 Lymphocytes % 30.4 Monocytes % 8.6 Eosinophils % 2.5 Basophils % 0.6 Nucleated RBC % % 0 Absolute Neutrophils (1.2-6.7) 10^3/uL 6.50 Absolute Lymphocytes (1.2-3.4) 10^3/uL 3.43 H Absolute Monocytes (0.1-0.8) 10^3/uL 0.97 H Absolute Eosinophils (0.0-0.7) 10^3/uL 0.28 Absolute Basophils (0.0-0.2) 10^3/uL 0.07 Sodium (136-145) mmol/L 142 Potassium (3.5-5.1) mmol/L 3.8 Chloride (98-107) mmol/L 107 Carbon Dioxide (21.0-32.0) mmol/L 26.0 Anion Gap (3-11) mmol/L 9.0 BUN (7-18) mg/dL 14 Creatinine (0.55-1.02) mg/dL 0.8 Estimated GFR/1.73 m2 (mL/min/1.73m2) >= 60.00 Glucose (74-106) mg/dL 96 Calcium (8.5-10.1) mg/dL 8.7 Total Bilirubin (0.2-1.0) mg/dL 0.2 AST (15-37) U/L 11 L ALT (14-59) U/L 18 Alkaline Phosphatase (46-116) U/L 94 Total Protein (6.4-8.2) g/dL 7.1 Albumin (3.4-5.0) g/dL 3.7 Urine Color (Yellow) Yellow Urine Clarity (Clear) Clear Urine pH (5-8) 7.0 Ur Specific [place] (1.005-1.025) 1.025 Urine Protein (Negative) mg/dL Negative Urine Ketones (Negative) mg/dL Negative Urine Blood (Negative) Negative Urine Nitrite (Negative) Negative Urine Bilirubin (Negative) Negative Urine Urobilinogen (Up TO 0.2) EU/dL 0.2 Ur Leukocyte Esterase (Negative) Negative Urine Glucose (Negative) mg/dL Negative HPI General Mode of arrival: ambulatory . Date/Time Provider Initiated Documentation: 09/04/20 20:30 . Limitations to Documentation: no limitations . Information obtained by: patient . HPI Narrative: Patient is a 19-year-old female who presents to the ED with a complaint of vomiting, diarrhea and abdominal pain for the past 3 weeks. Patient was seen here 4 days ago for the same complaint and had a CT abdomen and pelvis which noted mild bowel wall thickening and dilatation of loops of proximal jejunum. A mild infectious or inflammatory enteritis should be considered and was sent home with dicyclomine for enteritis and acute lymphadenitis. Patient states she has been taking the dicyclomine with some relief. She describes the pain as intermittent, cramping, and currently 8/10. She states the diarrhea is loose, and brown but denies any bloody stool. She states she has had multiple episodes of vomiting and diarrhea that occur anytime she attempts to eat. She denies any fever, chest pain, shortness of breath, urinary symptoms, vaginal discharge, genital lesions. She was recently on doxycycline for bronchitis. She denies any recent travel. She denies any known exposure to coronavirus. Related Data Home Medications Medication Instructions Recorded Confirmed gabapentin 300 mg PO TID 08/08/20 08/31/20 doxycycline hyclate 100 mg PO BID #14 tab 08/19/20 08/31/20 prednisone 40 mg PO DAILY #4 tab 08/19/20 08/31/20 dicyclomine 10 mg PO TID #14 cap 09/01/20 ondansetron 4 mg PO TID PRN #6 tab 09/04/20 Previous Rx's Medication Instructions Recorded doxycycline hyclate 100 mg PO BID #14 tab 08/19/20 prednisone 40 mg PO DAILY #4 tab 08/19/20 dicyclomine 10 mg PO TID #14 cap 09/01/20 ondansetron 4 mg PO TID PRN #6 tab 09/04/20 Allergies Allergy/AdvReac Type Severity Reaction Status Date / Time Penicillins Allergy Unknown Verified 08/31/20 21:25 General EDVIN: 3 Review of Systems All systems reviewed & are unremarkable except as noted in HPI and below Constitutional Constitutional: Reports as per HPI, Denies chills and Denies fever(s) Eyes Eyes: Denies blurry vision ENT Ears, Nose, Mouth, and Throat: Denies dizziness, Denies sore throat and Denies throat swelling Cardiovascular Cardiovascular: Denies chest pain and Denies dyspnea Respiratory Respiratory: Denies cough and Denies dyspnea Gastrointestinal Gastrointestinal: Reports abdominal pain, Reports diarrhea and Reports vomiting Genitourinary Genitourinary: Denies hematuria and Denies dysuria Musculoskeletal Musculoskeletal: Denies back pain and Denies numbness Integumentary/Breasts Skin/Breast: Denies lesions and Denies rash Neurologic Neurologic: Denies dizziness, Denies localized weakness and Denies numbness Allergic/Immunologic Allergic/Immunologic: Denies throat swelling [facility] Medical History Epilepsy Nerve pain right side - uses gabapentin to tx No significant past medical history Social History (Reviewed 08/31/20 @ 21:37 by CHAYITO Forrest Smoking/Tobacco Use Status: Former Tobacco Use Smoking risk assessment performed?: Yes Alcohol Intake: current Alcohol Intake frequency: holidays/special occasions only Drug use: Never Substance use type: does not use Do you feel safe at home: Yes Do you feel safe in your relationship?: Yes Exam Const General: cooperative, healthy appearing and no acute distress HENMT Head: normal to inspection Face and sinus: normal facial exam Eyes General: appearance normal, both eyes and all related structures EOM: EOM intact bilaterally Neck Neck: normal visual inspection and No submandibular swelling Lymphatic: no lymphadenopathy noted Chest Chest: normal inspection of the chest and no tenderness Resp Effort & Inspection: normal respiratory effort and able to speak in complete sentences Auscultation: clear to auscultation bilaterally Cardio Rate: regular rate Rhythm: regular rhythm GI Inspection: normal to inspection and obesity Palpation: soft, not firm, not rigid and tender in the LLQ, in the RLQ and suprapubicly Auscultation: hypoactive bowel sounds Skin General skin exam: no rashes or lesions noted Neuro General: patient alert, patient awake and patient oriented x3 Cognition: normal cognition Speech: speech normal Motor: muscle tone normal throughout Sensory Exam: no sensory deficits noted Extrem General: normal to inspection, full ROM, capillary refill normal, no calf tenderness bilaterally and no edema Psych Appearance: grossly normal Mental Status: mental status grossly normal Speech and Movement: speech and movement normal Affect: normal affect
[2020-09-04 20:41] VITALS: BP 155/100; PULSE 72; RESP 18; TEMP 36.5; O2SAT 98
[2020-09-04 21:40] LABS: Abs Immature Grans 0.03 10^3/uL (0.0-0.06); Absolute Basophil Count 0.07 10^3/uL (0.0-0.2); Absolute Eosinophil Count 0.28 10^3/uL (0.0-0.7); Absolute Lymphocyte Count 3.43 10^3/uL (1.2-3.4); Absolute Monocyte Count 0.97 10^3/uL (0.1-0.8); Basophils % 0.6; Eosinophils % 2.5; HCT 39.9 % (36.0-46.0); HGB 13.8 g/dL (11.2-15.7); Immature Grans % 0.3; Lymphocytes % 30.4; MCH 28.7 pg (27.0-33.0); MCHC 34.6 % (32.0-36.0); MPV 9.3 fL (8.0-11.0); Monocytes % 8.6; Neutrophils % 57.6; Nucleated RBC 0 %; Platelet Count 326 10^3/uL (130-400); RBC 4.81 10^6/uL (3.93-5.22); RDW 12.2 % (11.7-14.6); RDW-SD 37.1 fL; WBC 11.29 10^3/uL (4.4-10.8)
[2020-09-04 22:00] LABS: ALT 18 U/L (14-59); AST 11 U/L (15-37); Albumin 3.7 g/dL (3.4-5.0); Alkaline Phosphatase 94 U/L (46-116); BUN 14 mg/dL (7-18); Bilirubin, Total 0.2 mg/dL (0.2-1.0); CREATININE 0.8 mg/dL (0.55-1.02); Calcium 8.7 mg/dL (8.5-10.1); Chloride 107 mmol/L (98-107); Glucose 96 mg/dL (74-106); Potassium 3.8 mmol/L (3.5-5.1); Sodium 142 mmol/L (136-145); Total Protein 7.1 g/dL (6.4-8.2)
[2020-09-04] MEDS: Ketorolac 30 MG/ML VIAL IVP (22:18)
[2020-09-04] MEDS: Ondansetron 4 MG/2 ML VIAL IVP (22:18)
[2020-09-04 22:19] LABS: Bilirubin Negative (Negative); Blood Negative (Negative); Clarity Clear (Clear); Glucose Negative (Negative); Ketones Negative (Negative); Leukocyte Esterase Negative (Negative); Nitrite Negative (Negative); Specific Gravity 1.025 (1.005-1.025); Urobilinogen 0.2 EU/dL (Up TO 0.2)
[2020-09-04] MEDS: Normal Saline 1,000 ML 1000 ML IV (22:19)
[2020-09-04 23:16] VITALS: BP 114/79; PULSE 86; RESP 16; O2SAT 98
[2020-09-04] MEDS: Ondansetron O.D.T. 4 MG TABEF, 3 TABS/BTL PO (23:16)
== END 2020-09-04 23:25 | disposition home or self-care (01) ==
PROVIDERS: Emergency Provider Physician Assistant
DX: R10.9 Unspecified abdominal pain (principal); R11.10 Vomiting, unspecified; R19.7 Diarrhea, unspecified
CPT/HCPCS: 80053; 81025; 96361; 96374; 96375; 99284; 81003; 85025; 99283; J1885; J2405

== ENCOUNTER 2020-09-05 19:54 | Outpatient (REF) | payer MEDICAID, SELFPAY ==
[2020-09-05 21:52] LABS: C Diff PCR Negative (Negative)
[2020-09-06 21:01] LABS: Campylobacter PCR Negative (Negative); Salmonella PCR Negative (Negative); Shiga Toxin PCR Negative (Negative); Shigella/Enteroinvasive Ecoli Negative (Negative)
== END 2020-09-05 19:55 | disposition home or self-care (01) ==
LOC: LBN 19:54
PROVIDERS: Visit Provider Physician Assistant
DX: R19.7 Diarrhea, unspecified (principal); R10.9 Unspecified abdominal pain; R11.10 Vomiting, unspecified
CPT/HCPCS: 87329; 87493; 87505; 87177